=== PATIENT | male | born 1955 | race Caucasian/White ===

== ENCOUNTER 2022-03-18 11:43 | Emergency (ER) | payer MEDICAID ==
[~2022-03-18] VITALS: Ht 162.6 cm; Wt 83.0 kg
[2022-03-18 12:01] VITALS: BP 165/101
[2022-03-18] MEDS ORDERED: cefTRIAXone 500 MG in LIDOCAINE MPF 1% 1 ML IM ONE (12:45)
--- NOTE | 2022-03-18 13:00 | NUR ---
66 y/o male, c/o dysuria for 2 weeks, describes it as burning sensation with voiding. denies n/v/d, chills, fever, abd pain or back pain.
[2022-03-18 13:07] LABS: APPEARANCE,URINE CLEAR (CLEAR); BILIRUBIN,URINE NEGATIVE (NEGATIVE); BLOOD, URINE NEGATIVE (NEGATIVE); COLOR,URINE YELLOW (YELLOW); LEUKOCYTE ESTERASE ,URINE NEGATIVE (NEGATIVE); NITRITE, URINE NEGATIVE (NEGATIVE); UGLUCOSE NEGATIVE (NEGATIVE)
[2022-03-18] MEDS ORDERED: DOXY-690 PO (13:21)
[2022-03-18] MEDS ORDERED: cefTRIAXone 500 MG VIAL ONE (13:31)
[2022-03-18] MEDS ORDERED: LIDOCAINE MPF 1% 5 ML ONE (13:31)
[2022-03-18 14:28] VITALS: BP 169/83
== END 2022-03-18 14:28 | disposition home or self-care (01) ==
LOC: MED 11:43
DX: R30.0 Dysuria (principal); F17.210 Nicotine dependence, cigarettes, uncomplicated; Z72.89 Other problems related to lifestyle
CPT/HCPCS: 81003; 87086; 87491; 96372; 99283; J0696; J2001